=== PATIENT | female | born 1980 ===

== ENCOUNTER 2024-09-25 12:30 | Outpatient (CLI) | payer BC | END 2024-09-25 12:31 | disposition home or self-care (01) | LOC: CSHMAMMO 12:30 | PROVIDERS: ATTEND Family Medicine | DX: Z12.31 Encounter for screening mammogram for malignant neoplasm of breast (principal) | CPT/HCPCS: 77063; 77067 ==

== ENCOUNTER 2025-05-02 09:28 | Outpatient (CLI) | payer BC | END 2025-05-02 09:29 | disposition home or self-care (01) | LOC: CSHMAMMO 09:28 | PROVIDERS: ATTEND Family Medicine | DX: N63.10 Unspecified lump in the right breast, unspecified quadrant (principal) | CPT/HCPCS: G0279 ==